=== PATIENT | female | born 1950 | race Caucasian/White ===

== ENCOUNTER → 2023-12-07 08:30 | Outpatient (REF) | payer OTHER, SELFPAY | LOC: WDC 08:30 | PROVIDERS: ATTENDING PHYSICIAN Nurse Practitioner | DX: Z12.31 Encounter for screening mammogram for malignant neoplasm of breast (principal); Z00.00 Encounter for general adult medical examination without abnormal findings; Z13.820 Encounter for screening for osteoporosis | CPT/HCPCS: 77063; 77067; 77080 ==

== ENCOUNTER → 2024-04-26 08:28 | Outpatient (REF) | payer OTHER, SELFPAY | LOC: MRI 3T 08:28 | PROVIDERS: ATTENDING PHYSICIAN Internal Medicine Gastroenterology; FAMILY PHYSICIAN Internal Medicine | DX: K86.2 Cyst of pancreas (principal) | CPT/HCPCS: 74183; A9575 ==

== ENCOUNTER → 2024-10-02 11:37 | Outpatient (REF) | payer OTHER, SELFPAY | LOC: MRI 3T 11:37 | PROVIDERS: ATTENDING PHYSICIAN Internal Medicine Gastroenterology; FAMILY PHYSICIAN Internal Medicine | DX: K86.2 Cyst of pancreas (principal) | CPT/HCPCS: 74183; A9575 ==

== ENCOUNTER 2024-11-28 06:22 | Day surgery (SDC) | payer OTHER, SELFPAY ==
[2024-11-28 12:05] VITALS: BMI 29.0
[2024-11-28 12:10] VITALS: BP 118/81
[2024-11-28 12:15] VITALS: BMI 29.0
[2024-11-28 16:17] VITALS: BP 90/53
[2024-11-28 16:30] VITALS: BP 106/72
[2024-11-28 16:45] VITALS: BP 123/96
== END 2024-11-28 17:00 | disposition home or self-care (01) ==
LOC: SDS 06:22
PROVIDERS: ATTENDING PHYSICIAN Internal Medicine Gastroenterology
DX: K86.9 Disease of pancreas, unspecified (principal); K86.2 Cyst of pancreas; K83.8 Other specified diseases of biliary tract
CPT/HCPCS: 43259

== ENCOUNTER → 2025-04-03 17:07 | Outpatient (REF) | payer OTHER, SELFPAY | LOC: WDC 17:07 | PROVIDERS: ATTENDING PHYSICIAN Hospitalist | DX: Z12.31 Encounter for screening mammogram for malignant neoplasm of breast (principal) | CPT/HCPCS: 77063; 77067 ==